=== PATIENT | male | born 1980 | race Caucasian/White ===

== ENCOUNTER 2021-06-07 17:35 | Emergency (ER) | payer OTHER ==
[2021-06-07 18:40] LABS: EOSINOPHIL 6.2 % (0-5); HCT 45.3 % (42.0-52.0); HGB 15.7 g/dl (13.2-18.0); LYMPHOCYTE 21.5 % (15-48); MCH 30.5 pg (25.0-31.0); MCHC 34.7 g/dL (32.0-36.0); MONOCYTE 8.1 % (0-12); NRBC 0; PLT 233 K/uL (150-400); RBC 5.15 M/uL (4.70-6.00); RDW 12.4 % (11.5-14.0); WBC 9.1 K/uL (4.0-10.5)
[2021-06-07 18:52] LABS: PROTHROMBIN TIME 12.6 SECONDS (11.8-13.4); PTT 31.8 SECONDS (24.4-34.7)
[2021-06-07 19:04] LABS: ALBUMIN 3.6 g/dL (3.4-5.0); BILIRUBIN - TOTAL 0.2 mg/dL (0.2-1.0); CREATININE 0.8 mg/dL (0.67-1.17); GLOBULIN (CALCULATION) 2.7 g/dL; TOTAL PROTEIN 6.3 g/dL (6.4-8.2)
[2021-06-07] MEDS ORDERED: MEDROL 4MG DOSEP4 MG PO (20:31)
[2021-06-07 21:20] LABS: CORONAVIRUS 2019 SARS-COV-2 NEGATIVE (NEGATIVE); INFLUENZA A NAA NEGATIVE (NEGATIVE)
== END 2021-06-07 20:51 | disposition home or self-care (01) ==
LOC: FER 17:35
PROVIDERS: Emergency Medicine; Internal Medicine
DX: R07.81 Pleurodynia (principal); Z88.0 Allergy status to penicillin; Z88.1 Allergy status to other antibiotic agents; Z20.822 Contact with and (suspected) exposure to COVID-19
CPT/HCPCS: 36415; 71045; 80053; 84145; 84484; 85025; 85610; 85730; 93005; J1885; U0002